=== PATIENT | male | born 1995 | race Caucasian/White ===

== ENCOUNTER → 2016-07-21 | Outpatient (CLI) | payer OTHER, BC | LOC: BMCIMAGING 15:53 | PROVIDERS: ATTEND Family Medicine | DX: M25.572 Pain in left ankle and joints of left foot (principal) ==

== ENCOUNTER 2017-06-19 12:28 | Emergency (ER) | payer OTHER, BC ==
[2017-06-19] MEDS ORDERED: NS 1,000 ML IV ONE ×2 (13:02)
[2017-06-19] MEDS ORDERED: KETOROLAC 30 MG/1 ML SDV IVP ONE (13:02)
[2017-06-19 13:08] LABS: PLATELET COUNT 172 10^3/uL (150-400)
[2017-06-19] MEDS ORDERED: HYDROmorphONE/DILAUDID 2 MG/ML INJ IVP ONE (13:08)
--- NOTE | 2017-06-19 13:08 | EDPHY ---
H & P Time Seen by Provider: 06/19/17 12:43 HPI/ROS: CHIEF COMPLAINT: Left flank pain HISTORY OF PRESENT ILLNESS: Patient is a history of kidney stones diagnosed in 2013 when he was 18 years old by a CT scan at [place]. He says he feels similar symptoms today at 11:00 a.m. Started having left flank pain which radiates around to the anterior abdomen, severe, worse with sitting. No testicular symptoms, no associated vomiting or diarrhea, no recent injury or trauma. Did have some intermittent abdominal pain earlier in this week. REVIEW OF SYSTEMS: Eye: no change in vision ENT: no sore throat Cardiac: no chest pain or syncope Pulmonary: no cough or SOB Abdomen: HPI Musculoskeletal: HPI Skin: no rash Neuro: no headache Constitutional: no fever : no urinary symptoms A comprehensive 10 point review of systems is otherwise negative aside from elements mentioned in the history of present illness. PAST MEDICAL HISTORY: Renal colic, right elbow surgery, childhood asthma. Social history: Former smoker General Appearance: Alert and conversant, cooperative. Eyes: No scleral icterus. ENT, Mouth: Normal mucous membranes. Respiratory: Normal respiratory effort, breath sounds equal, lungs are clear to auscultation. Cardiovascular: Regular rate and rhythm. Gastrointestinal: Abdomen is soft and non tender. No rebound or guarding and no McBurney's point tenderness. Neurological: Alert, face symmetric, normal motor and sensory in extremities. Skin: Warm and dry, no rashes. Musculoskeletal: No peripheral edema. No CVA tenderness. Psychiatric: Not agitated. Emergency Department course/MDM: Urinalysis, Toradol 15 mg IV, IV fluids. Retroperitoneal ultrasound. 1430: Labs reviewed including normal urinalysis, negative ultrasound for hydronephrosis, normal labs. 1437: Feels better, is comfortable now, more likely to be musculoskeletal with database showing no hydronephrosis and no hematuria. Symptomatic treatment and [facility] follow-up. Smoking Status: Former smoker Constitutional: Initial Vital Signs Temperature (C) 36.3 C 06/19/17 12:30 Heart Rate 70 06/19/17 12:30 Respiratory Rate 18 06/19/17 12:30 Blood Pressure 145/79 H 06/19/17 12:30 O2 Sat (%) 96 06/19/17 12:30 O2 Delivery Mode Room Air Allergies/Adverse Reactions: No Known Allergies Allergy (Verified 06/19/17 12:29) Home Medications: Medication Instructions Recorded Ceftin 06/19/17 Medical Decision Making - Diagnostics Imaging Results: Imaging Impressions Abdomen/Pelvis Ultrasound 06/19/17 13:02 Impression: Sonographically normal kidneys and bladder. Imaging: Discussed imaging studies w/ scallop binder Radiologist Differential Diagnosis: Differential diagnosis considered for flank pain including but not limited to musculoskeletal causes, kidney stone, pyelonephritis, shingles, and intra- abdominal causes such as diverticulitis and appendicitis. - Data Points Laboratory Results: Laboratory Results 06/19/17 12:40 06/19/17 12:40 06/19/17 06/19/17 06/19/17 12:40 12:40 12:40 WBC 5.06 10^3/uL 10^3/uL (3.80-9.50) RBC 5.15 10^6/uL 10^6/uL (4.40-6.38) Hgb 16.5 g/dL g/dL (13.7-17.5) Hct 48.1 % % (40.0-51.0) MCV 93.4 fL fL (81.5-99.8) MCH 32.0 pg pg (27.9-34.1) MCHC 34.3 g/dL g/dL (32.4-36.7) RDW 11.9 % % (11.5-15.2) Plt Count 172 10^3/uL 10^3/uL (150-400) MPV 13.8 fL H fL (8.7-11.7) Neut % (Auto) 55.5 % % (39.3-74.2) Lymph % (Auto) 31.6 % % (15.0-45.0) Cedar % (Auto) 9.9 % % (4.5-13.0) Eos % (Auto) 2.0 % % (0.6-7.6) Baso % (Auto) 0.8 % % (0.3-1.7) Nucleat RBC Rel Count 0.0 % % (0.0-0.2) Absolute Neuts (auto) 2.81 10^3/uL 10^3/uL (1.70-6.50) Absolute Lymphs (auto) 1.60 10^3/uL 10^3/uL (1.00-3.00) Absolute Monos (auto) 0.50 10^3/uL 10^3/uL (0.30-0.80) Absolute Eos (auto) 0.10 10^3/uL 10^3/uL (0.03-0.40) Absolute Basos (auto) 0.04 10^3/uL 10^3/uL (0.02-0.10) Absolute Nucleated RBC 0.00 10^3/uL 10^3/uL (0-0.01) Immature Gran % 0.2 % % (0.0-1.1) Immature Gran # 0.01 10^3/uL 10^3/uL (0.00-0.10) Sodium 142 mEq/L mEq/L (135-145) Potassium 4.4 mEq/L mEq/L (3.5-5.2) Chloride 102 mEq/L mEq/L (97-110) Carbon Dioxide 29 mEq/l mEq/l (22-31) Anion Gap 11 mEq/L mEq/L (8-16) BUN 13 mg/dL mg/dL (7-23) Creatinine 0.8 mg/dL mg/dL (0.7-1.3) Estimated GFR > 60 Glucose 98 mg/dL mg/dL (70-100) Calcium 10.4 mg/dL mg/dL (8.5-10.4) Urine Color PALE YELLOW Urine Appearance CLEAR Urine pH 6.0 (5.0-7.5) Ur Specific [place] 1.003 (1.002-1.030) Urine Protein NEGATIVE (NEGATIVE) Urine Ketones NEGATIVE (NEGATIVE) Urine Blood NEGATIVE (NEGATIVE) Urine Nitrate NEGATIVE (NEGATIVE) Urine Bilirubin NEGATIVE (NEGATIVE) Urine Urobilinogen NEGATIVE EU EU (0.2-1.0) Ur Leukocyte Esterase NEGATIVE (NEGATIVE) Urine Glucose NEGATIVE (NEGATIVE) Medications Given: Discontinued Medications Hydromorphone HCl (Dilaudid) 0.5 mg IVP EDNOW ONE Stop: 06/19/17 13:09 Last Admin: 06/19/17 13:22 Dose: 0.5 mg Sodium Chloride (Ns) 1,000 mls @ 0 mls/hr IV EDNOW ONE; Wide Open PRN Reason: Protocol Stop: 06/19/17 13:03 Last Admin: 06/19/17 13:23 Dose: 1,000 mls Sodium Chloride (Ns) 1,000 mls @ 0 mls/hr IV EDNOW ONE; Wide Open PRN Reason: Protocol Stop: 06/19/17 13:03 Last Admin: 06/19/17 13:24 Dose: 1,000 mls Ketorolac Tromethamine (Toradol) 15 mg IVP EDNOW ONE Stop: 06/19/17 13:03 Last Admin: 06/19/17 13:23 Dose: 15 mg Departure - Departure Disposition: Home, Routine, Self-Care Clinical Impression: Left flank pain Condition: Good Instructions: Flank Pain (ED) Additional Instructions: heating pad to area 20 minutes at a time for next 3 days as needed for pain oral ibuprofen 600mg by mouth every 8 hours as needed for pain over next 5 days. Referrals: [facility] [Clinic] - As per Instructions Minerva Gottlieb MD [Medical Doctor] - As per Instructions Stand Alone Forms: School Excuse
[2017-06-19 14:56] VITALS: BP 132/79
== END 2017-06-19 14:56 | disposition home or self-care (01) ==
DX: R10.9 Unspecified abdominal pain (principal); E86.9 Volume depletion, unspecified; J45.909 Unspecified asthma, uncomplicated; Z87.891 Personal history of nicotine dependence
CPT/HCPCS: 96374; J1170; J1885